=== PATIENT | female | born 1980 | race Two or more races ===

== ENCOUNTER 2021-10-12 11:48 | Emergency (ER) | payer SELFPAY ==
[~2021-10-12] VITALS: Ht 167.6 cm; Wt 72.6 kg
[2021-10-12 11:52] VITALS: BP 132/81
--- NOTE | 2021-10-12 12:31 | NUR ---
Pt refusing any and all interventions at this time states "I want to leave and I just want food" Pt got up gait even and steady. Eloped. WALLACE ([place]) notified
== END 2021-10-12 12:33 | disposition home or self-care (01) ==
LOC: ER 11:57
DX: M54.50 Low back pain, unspecified (principal); F32.A Depression, unspecified; Z59.00 Homelessness unspecified